=== PATIENT | male | born 1970 | race Two or more races ===

== ENCOUNTER 2024-12-19 05:22 | Day surgery (SDC) | payer OTHER ==
[2024-12-14 10:36] VITALS: BP 115/75
[2024-12-14 10:47] LABS: BASO % 0.7 % (0.1-1.2); EOS # 0.11 (0.04-0.54); EOS % 2.7 % (0.7-7.0); LYMPH # 1.46 (1.18-3.74); LYMPH % 35.5 % (19.3-53.1); MEAN PLATELET VOLUME 9.40 fl (9.4-12.4); MONO # 0.53 (0.24-0.82); NEUT # 1.97 (1.56-6.13); NEUT % 48.0 % (34.0-71.1); RED CELL DISTRIBUTION WIDTH 12.6 % (11.6-14.4); URINE APPEARANCE Clear; URINE BILIRRUBIN Negative (NEGATIVE); URINE BLOOD Negative; URINE COLOR Yellow; URINE GLUCOSE Negative (NEGATIVE); URINE KETONE Negative (NEGATIVE); URINE LEUKOCYTE Negative; URINE NITRATE Negative; URINE PROTEIN Negative (NEGATIVE); URINE UROBILINOGEN 0.2 E.U./dl
[2024-12-14 10:51] LABS: MONO % 12.9 % (4.7-12.5); URINE BACTERIA 7.1 uL (0.0-1933); URINE WBC 1.8 uL (0.0-23.2)
[2024-12-14 10:57] LABS: URINE CAST 0.00 uL (0.0-1.40); URINE EPITHELIAL CELLS 1.0 uL (0.0-38.8); URINE RBC 0.4 uL (0.0-20.8)
[2024-12-14 11:06] LABS: INR 0.98
[2024-12-14 11:26] LABS: ALT/SGPT 43.0 U/L (12-78); AST/SGOT 23.0 U/L (15-37); BILIRUBIN TOTAL 0.89 mg/dL (0.3-1.2); BUN CREA RATIO 15.0 (7.0-25.0); CREATININE SERUM 0.78 mg/dL (0.70-1.30); GFR 103.72; GLOBULINA 3.2 G/DL (2.4-3.5); GLUCOSE FASTING 96.0 mg/dL (65-100); OSMOLALITY SERUM 285.0 MOSM/KG (275-295)
[~2024-12-19] VITALS: Ht 180.3 cm; Wt 89.4 kg
[~2024-12-19 05:22] MED LIST: ELIQUIS5 MG PO; FLECAINIDE ACET50 MG PO; ROSUVASTATIN CA10 MG PO; TOPROL XL25 M1 PO
[2024-12-19] MEDS ORDERED: CEFAZOLIN SODIUM 1,000 MG VIAL IV ONE (09:00)
== END 2024-12-19 12:20 | disposition home or self-care (01) ==
LOC: CIR.AMB 05:22
PROVIDERS: ATTEND Surgery
DX: K40.20 Bilateral inguinal hernia, without obstruction or gangrene, not specified as recurrent (principal); Z91.018 Allergy to other foods; K41.90 Unilateral femoral hernia, without obstruction or gangrene, not specified as recurrent
CPT/HCPCS: 49650; C1781